=== PATIENT | female | born 1950 | race African-American/Black ===

== ENCOUNTER 2025-09-23 07:56 | Outpatient (AMB) | payer MEDICARE, SELFPAY ==
--- OUTSIDE RECORDS SUMMARY | 2025-09-23 07:59 | XMS_ITS | Clinical Summary ---
Author Organization [facility] Address [address] [place] [address] Care Team Providers Care Healthcare Architect Name Role Phone Mi Solorzano MD Primary Care Provider [phone]- [phone] Social History Tobacco Use Types Packs/Day Years Used Date Smoking Tobacco: Never Assessed Comments Unknown Sex and Gender Information Value Date Recorded Sex Assigned at Not on file Legal Sex Female 8:42 PM EST Gender Identity Not on file Sexual Orientation Not on file Plan of Treatment Health Maintenance Due Date Last Done Comments Diabetes: Annual GFR (Glomerular Filtration Rate) 1950 Diabetes: Annual Foot Exam 1959 Diabetes: Annual Retina Eye Exam 1959 Cholesterol Screening (Lipid Panel) 11/06/2022 Falls Risk Assessment 11/06/2022 Hepatitis C Screening 11/06/2022 Osteoporosis Screening (Bone Density Screening) 11/06/2022 Social Influencers of Health Screening 11/06/2022 Hypertension/CHF/CAD Annual BMP Blood Test 11/09/2022 RSV Immunization Adult Patients (1 - 1-dose 75+ series) 01/28/2024 Depression Screening 11/24/2024 COVID-19 Vaccine ( season) 2025 09/06/2024, 09/20/2023, 05/17/2022, Additional history exists Influenza Vaccine (#1) 2025 4, 09/20/2023, 09/18/2022, Additional history exists Diabetes: Annual Urine Albumin-Creatinine Ratio (uACR) 09/22/2025 Diabetes: Blood Sugar Control Test (HGBA1C) 09/22/2025 DTaP,Tdap,and Td Vaccines (4 - Td or Tdap) 01/01/2032 01/01/2022, 10/25/2011, 07/26/2005 Zoster Vaccines Completed 08/21/2020, 02/04/2020 Pneumococcal Vaccine: 50+ Years Completed 07/01/2022, 03/30/2018, 04/03/2016 Breast Cancer Screening Discontinued 01/30/20, 01/28/2023, 01/25/2022, Additional history exists HIB Vaccines Aged Out No longer eligi ble based on patient's age to complete this topic HPV Vaccines Aged Out No longer eligi ble based on patient's age to complete this topic Hepatitis A Vaccines Aged Out No long er eligible based on patient's age to complete this topic Hepatitis B Vaccines Aged Out No long er eligible based on patient's age to complete this topic IPV Vaccines Aged Out No longer eligi ble based on patient's age to complete this topic MMR Vaccines Aged Out No longer eligi ble based on patient's age to complete this topic Meningococcal ACWY Vaccine Aged Out N o longer eligible based on patient's age to complete this topic Meningococcal B Vaccine Aged Out No l onger eligible based on patient's age to complete this topic RSV Immunization Patients Under 20 months Aged Out No longer eligible based on patient's age to complete this topic Varicella Vaccines Aged Out No longer eligible based on patient's age to complete this topic Procedures Procedure Name Priority Date/Time Associated Diagnosis Comments [facility] SCREENING DIGITAL Routine 01/30/2024 3:45 PM EST Encounter for screening mammogram for malignant neoplasm of breast from Last 3 Months or Most Recently Relevant to Health Maintenance Results * [facility] SCREENING DIGITAL (01/30/2024 3:45 PM EST) Anatomical Region Laterality Modality Mammography 01/30/2024 1:04 PM EST Narrative 01/30/2024 3:45 PM [facility] Diagnostic Imaging Department [address] [place] [id number] Patient: AMANDO WALDEN Georgina /Age/Sex: 1950 - 74 - F Unit#: [id number] Location/Status: SPDIMAM/REG CLI Mnemonic/Ordering Site: [facility] Ordering Physician: MI SOLORZANO MD [facility] Screening Digital - 01/30/24 - 1319 Report Status:Signed EXAM: [facility] Screening Digital EXAM DATE AND TIME: 01/30/2024 1:19 PM HISTORY: Screening. Sister had breast carcinoma age 62. COMPARISON: 01/27/23, 01/25/22, 01/22/21, 12/27/19 TECHNIQUE: Bilateral digital breast tomosynthesis was performed in the CC and MLO projections. Computer aided detection with [employer] 3D 3.1 was employed. TISSUE DENSITY: a. The breasts are almost entirely fatty. FINDINGS: The nodular parenchymal pattern is unchanged. Multiple benign-appearing calcifications are again seen bilaterally. No suspicious masses, grouped microcalcifications, or areas of architectural distortion are seen. Vascular calcification is present. The skin is unremarkable. IMPRESSION: Stable mammographic appearance of the breasts. No evidence of malignancy is seen. A negative mammogram in the presence of a clinically suspicious palpable abnormality does not preclude the possibility of malignancy or alter the indications for biopsy. BI-RADS: Category 2: Benign RECOMMENDATION(S): 1: Routine screening mammogram BILATERAL in 1 year. Dictating Physician: NICOLE MORALES MD Electronically Signed by: NICOLE MORALES MD Dic Date/Time: 01/30/24 1544 Sign date/Time: 01/30/24 1545 Procedure Note Nicole Morales MD - 07/12/2024 [facility] Diagnostic Imaging Department [address] [place] [id number] Patient: AMANDO WALDEN Georgina /Age/Sex: 1950 - 74 - F Unit#: [id number] Location/Status: [facility] CLI Mnemonic/Ordering Site: [facility] Ordering Physician: MI SOLORZANO MD [facility] Screening Digital - 01/30/24 - 1319 Report Status:Signed EXAM: [facility] Screening Digital EXAM DATE AND TIME: 01/30/2024 1:19 PM HISTORY: Screening. Sister had breast carcinoma age 62. COMPARISON: 01/27/23, 01/25/22, 01/22/21, 12/27/19 TECHNIQUE: Bilateral digital breast tomosynthesis was performed in the CCand MLO projections. Computer aided detection with [employer] 3D 3.1was employed. TISSUE DENSITY: a. The breasts are almost entirely fatty. FINDINGS: The nodular parenchymal pattern is unchanged. Multiple benign-appearing calcifications are again seen bilaterally. No suspicious masses, grouped microcalcifications, or areas of architectural distortion are seen. Vascular calcification is present. The skin is unremarkable. IMPRESSION: Stable mammographic appearance of the breasts. No evidence of malignancyis seen. A negative mammogram in the presence of a clinically suspicious palpable abnormality does not preclude the possibility of malignancy or alter the indications for biopsy. BI-RADS: Category 2: Benign RECOMMENDATION(S): 1: Routine screening mammogram BILATERAL in 1 year. Dictating Physician: NICOLE MORALES MD Electronically Signed by: NICOLE MORALES MD Dic Date/Time: 01/30/24 1544 Sign date/Time: 01/30/24 1545 Mi Solorzano MD IMG BI PROCEDURES Final Re sult from Last 3 Months or Most Recently Relevant to Health Maintenance Care Teams Healthcare Architect Relationship Specialty Start Date End Date Mi Solorzano MD [address] [place] [id number] PCP - General Internal Medicine 01/06/19
--- OUTSIDE RECORDS SUMMARY | 2025-09-23 07:59 | XMS_ITS | Clinical Summary ---
Author Organization [facility] Address [address] [address] Phone Care Team Providers Care Hand Trucker Name Role Phone Yamileth Hill MD Primary Care Provider [phone]- [phone] Allergies Active Allergy Reactions Criticality Noted Date Comments Calcium Channel Blockers 07/25/2021 Dizziness Irbesartan 07/25/2021 Fatigue, near syncope Losartan 07/25/2021 Fatigue Medications aspirin (ST DANETTE) 81 MG EC tablet Take 81 mg by mouth 1 (one) time each day Active hydroCHLOROthiazi de 25 MG tablet Take 37.5 mg by mouth 1 (one) time each day Active metFORMIN (GLUCOPHAGE) 500 MG tablet Take 500 mg by mouth 2 (two) times a day with meals Active spironolactone (ALDACTONE) 50 MG tablet Take 50 mg by mouth 1 (one) time each day Active valsartan (DIOVAN) 80 MG tabletIndications :Essential (primary) hypertension,Type 2 diabetes mellitus without complication (HCC) Take 1 tablet (80 mg total) by mouth 1 (one) time each day 90 tablet 1 06/21/2025 Active Active Problems Problem Noted Date Diagnosed Date Chronic kidney disease, stage 2 (mild) Essential (primary) hypertension 07/31/2021 Type 2 diabetes mellitus without complication Resolved Problems Problem Noted Date Diagnosed Date Resolved Date Stage 3a chronic kidney disease 08/28/2021 05/20/2022 Family History Medical History Relation Comments Diabetes Brother Cancer Father Diabetes Mother Stroke Mother Cancer Sister Diabetes Sister Relation Status Comments Brother Father Other Esophageal cance r Mother Sister Other lymphoma, stomac h cancer Social History Tobacco Use Types Packs/Day Years Used Date Smoking Tobacco: Never Smokeless Tobacco: Never Alcohol Use Standard Drinks/Week Comments Never 0 (1 standard drink = 0.6 oz pur e alcohol) Comments Unknown Sex and Gender Information Value Date Recorded Sex Assigned at Female 10/21/2021 9:11 PM EST Legal Sex Female 3:15 PM EDT Gender Identity Female 10/21/2021 9:11 PM EST Sexual Orientation Not on file Last Filed Vital Signs Vital Sign Reading Time Taken Comments Blood Pressure 130/78 11/08/2024 1:20 PM EST Pulse 100 11/08/2024 1:20 PM EST Temperature - - Respiratory Rate - - Oxygen Saturation 98% 11/08/2024 1:20 PM EST Inhaled Oxygen Concentration - - Weight 113 kg (250 lb) 11/08/2024 1:20 PM EST Height 172.7 cm (5' 8 ) 07/31/2021 1:54 PM EDT Body Mass Index 38.01 07/31/2021 1:54 PM EDT Plan of Treatment Upcoming Encounters Date Type Department Care Team (Late st Contact Info) Description 11/08/2025 1:00 PM EST Office Visit [facility] [address] [address] Agustina Javier ARNP [address] [address] Health Maintenance Due Date Last Done Comments Diabetes: Hemoglobin A1C 07/31/2021 Diabetes: Ophthalmology Exam 07/31/2021 Diabetes: Pedal Pulse Checked 07/31/2021 Diabetes: Sensory Foot Exam 07/31/2021 Diabetes: Visual Foot Exam 07/31/2021 Influenza Vaccine (#1) 2025 4, 08/29/2020 Pneumococcal Vaccine: 50+ Years Completed 03/30/2018, 04/03/2016 Hepatitis B Vaccine Aged Out No longe r eligible based on patient's age to complete this topic Insurance Care Teams Hand Trucker Relationship Specialty Start Date End Date Yamileth Hill MD [address] [place] [address] PCP - General Internal Medicine 06/11/21
--- NOTE | 2025-09-23 08:01 | A.OFFPC_ITS ---
Vital Signs 09/23/25 08:04 Height 5 ft 6.75 in Weight 0 oz BMI 0.0 BP 120/76 Blood Pressure Location Rt brachial Position Sitting Respiration 16 Pulse 86 Pulse Source Pulse Oximeter Temp 97.9 F Temp Source Temporal Artery Scan Pulse Oximetry (%) 98 Intake Visit Reasons: reestablish care, DM, HTN follow up Sample Body Builder Required: No Accompanied by: Self / Same As Patient Allergies atorvastatin Adverse Reaction (Intermediate, Verified 09/23/25 08:35) muscle aches Calcium Channel Blocking Agents-Dih Adverse Reaction (Intermediate, Verified 09/23/25 08:37) achiness Medication List - Last Reconciled 09/23/25 by Yamileth Hill MD atorvastatin 10 mg PO DAILY cholecalciferol (vitamin D3) 1,250 mcg PO QWEEK hydrochlorothiazide 37.5 mg PO DAILY Srinivasan,saliva-B.bif-S.therm 175 mg 1 cap PO DAILY loratadine 10 mg PO DAILY PRN metformin 500 mg PO BID spironolactone 50 mg PO DAILY valsartan 80 mg PO DAILY Tobacco use date assessed: 09/23/25 Fall risk assessment: No Falls in past year Last assessed Fall Risk: 09/23/25 Dental Screening Dental Screen Date: 09/23/25 Did you have a dental visit in the last 12 months?: Yes Did you have a dental problem in the last 6 months where you did not have access to dental care?: No Was dental information given to patient?: Patient has dentist HPI HPI Comments History of Present Illness Details The patient is a 75-year-old female presenting for re-establishment of care . Allergic Rhinitis: Symptoms began following her nephew?s family's stay. Associated with nasal discharge, watery eyes, and possible environmental triggers from a dog. Suprapubic Fullness/Urinary Urgency: Presents with suprapubic fullness and urgency from July, and previously not addressed. States she feels discomfort mainly in suprapubic region. Hyperlipidemia/Statin Intolerance: Discontinued statin due to severe adverse effects like nausea and dizziness, achiness. Was taking atorvastatin. Reported unsteadiness prior to discontinuing statin. Essential Hypertension: Blood pressure well-managed with current medications. Type 2 Diabetes Mellitus: Controlled with metformin and no reported issues. CKD stage III-stable Vitamin D deficiency- on high dose vitamin D Diagnostic Results: - Bone Density: Evaluated in March 2025- n ormal - Colonoscopy- normal last done in 09/12 24 at [facility]. - Mammogram: to be scheduled, pt has goo d quality of life even though age 75 Care Team Nephrology- RTANE Review of Systems - Respiratory: Reports clear runny nose, primarily on the right. - Ophthalmologic: Reports watery eyes. - Gastrointestinal: Reports intermittent gastric fullness. - Genitourinary: Reports urinary urgency . - Overall: Denies new major systemic ill nesses. Physical Exam -HEENT: EOMI -Pulmonary- Lungs clear to auscultation. - Cardiac- Normal heart sounds, grade II / murmur across precordium - Abdomen- Soft, no tenderness or organo megaly upon palpation. - Extremities- No significant swelling, no tenderness -Msk: no CVA tenderness bilaterally - Neurological- No overt signs of dizzin ess or imbalance upon cursory exam. Assessment and Plan 1. Allergic Rhinitis - Recommend air purifiers and loratadine trial. 2. Suprapubic Fullness/Urinary Urgency - Perform urinalysis and culture. 3. Statin Intolerance - Discontinue statin and evaluate lipid control in labs. 4. Essential Hypertension - Maintain current treatment; monitor cl osely. 5. Type 2 Diabetes Mellitus - Continue metformin; evaluate with labs . 6. CKD stage III-stable Follow up in 6 months for physical Discussion Notes I discussed the likely allergic nature of the patient's rhinitis symptoms, suggesting improvements through environmental changes such as air purifiers and trial of loratadine. We addressed her previous statin intolerance, deciding to discontinue due to intolerable side effects, and planned to reassess her cholesterol control with upcoming labs. We prioritized urinalysis to address her ongoing urinary concerns. Patient Instructions - Use air purifiers in living and sleepi ng areas. - Take loratadine (Claritin) once daily with evening meal for two weeks. - Visit the lab for urine testing today. . - Keep taking your blood pressure and di abetes medications as prescribed. - Call the office if symptoms do not imp rove or worsen. 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 How often do you have a drink containing alcohol?: Never 3. How often do you have six or more drinks on one occasion?: Never Total Score: 0 Physical exam (Primary Care) Vital Signs: Last Vital Signs Temp 97.9 F 09/23/25 08:04 Pulse 86 09/23/25 08:04 Resp 16 09/23/25 08:04 BP 120/76 09/23/25 08:04 Pulse Ox 98 09/23/25 08:04 BMI result Body Mass Index 0.0 Tobacco/Smoking Status: Tobacco use Status Tobacco use date assessed 09/23/25 09/23/25 08:08 Patient Tobacco Use Status Never used Tobacco 09/23/25 08:08 e-Cigarette/Vaping Use Never Used 09/23/25 08:08 Coding Level of Care Code Est Pt Level 4 (85111) Complex EM visit Add On G2211 Diagnoses Diabetes mellitus type 2 in obese E11.69; E66.9 Primary hypertension I10 Hyperlipidemia, unspecified hyperlipidemia type E78.5 Hyperlipidemia type: unspecified Urinary symptom or sign R39.9 Assessment & Plan Assessment & Plan (1) Diabetes mellitus type 2 in obese: Code(s): E11.69 - Type 2 diabetes mellitus with other specified complication; E66.9 - Obesity, unspecified Category: Medical (2) Primary hypertension: Code(s): I10 - Essential (primary) hypertension Category: Medical (3) Hyperlipidemia: Code(s): E78.5 - Hyperlipidemia, unspecified Category: Medical Qualifiers: Hyperlipidemia type: unspecified Qualified Code(s): E78.5 - Hyperlipidemia, unspecified (4) Urinary symptom or sign: Code(s): R39.9 - Unspecified symptoms and signs involving the genitourinary system Category: Medical Plan: check urinalysis, continue to monitor if needed do renal/pelvic ultrasound Plan - Trial loratadine with environmental adjustments. - Conduct urinalysis for urinary concerns. - Stop statin; reassess lipid panel. - Monitor BP under current meds. - Continue diabetes therapy and check HbA1c. Orders: Orders Comprehensive Met. Panel Today E11.69 - Type 2 diabetes mellitus with other specified complication, E66.9 - Obesity, unspecified, E78.5 - Hyperlipidemia, unspecified, I10 - Essential (primary) hypertension, R10.2 - Pelvic and perineal pain, R39.9 - Unspecified symptoms and signs involving the genitourinary system Complete Blood Count Auto Diff Today - Type 2 diabetes mellitus with other specified complication, E66.9 - Obesity, unspecified, E78.5 - Hyperlipidemia, unspecified, I10 - Essential (primary) hypertension, R10.2 - Pelvic and perineal pain, R39.9 - Unspecified symptoms and signs involving the genitourinary system Lipid Panel Today - Type 2 diabetes mellitus with other specified complication, E66.9 - Obesity, unspecified, E78.5 - Hyperlipidemia, unspecified, I10 - Essential (primary) hypertension, R10.2 - Pelvic and perineal pain, R39.9 - Unspecified symptoms and signs involving the genitourinary system Hemoglobin A1c Today - Type 2 diabetes mellitus with other specified complication, E66.9 - Obesity, unspecified, E78.5 - Hyperlipidemia, unspecified, I10 - Essential (primary) hypertension, R10.2 - Pelvic and perineal pain, R39.9 - Unspecified symptoms and signs involving the genitourinary system Microalbumin, Random (w Creat) Today - Type 2 diabetes mellitus with other specified complication, E66.9 - Obesity, unspecified, E78.5 - Hyperlipidemia, unspecified, I10 - Essential (primary) hypertension, R10.2 - Pelvic and perineal pain, R39.9 - Unspecified symptoms and signs involving the genitourinary system Urine Culture Today - Type 2 diabetes mellitus with other specified complication, E66.9 - Obesity, unspecified, E78.5 - Hyperlipidemia, unspecified, I10 - Essential (primary) hypertension, R10.2 - Pelvic and perineal pain, R39.9 - Unspecified symptoms and signs involving the genitourinary system UA w Microscopic Today - Type 2 diabetes mellitus with other specified complication, E66.9 - Obesity, unspecified, E78.5 - Hyperlipidemia, unspecified, I10 - Essential (primary) hypertension, R10.2 - Pelvic and perineal pain, R39.9 - Unspecified symptoms and signs involving the genitourinary system Vitamin D 25-OH Total Today E55.9 - Vitamin D deficiency, unspecified Medications: New zinc gluconate 50 mg PO DAILY 30 tabs 0RF loratadine 10 mg PO DAILY PRN 30 tabs 3RF allergy symptoms
[2025-09-23 08:04] VITALS: BP 120/76; PULSE 86; RESP 16; TEMP 36.6; O2SAT 98
== END 2025-09-23 09:00 | disposition home or self-care (01) ==
LOC: HO.HMCHD 07:57
PROVIDERS: PCP Internal Medicine; Visit Provider Internal Medicine
DX: E11.69 Type 2 diabetes mellitus with other specified complication (principal); E66.9 Obesity, unspecified; I10 Essential (primary) hypertension; E78.5 Hyperlipidemia, unspecified; R39.9 Unspecified symptoms and signs involving the genitourinary system

== ENCOUNTER 2025-09-23 07:56 | Outpatient (REF) | payer MEDICARE, SELFPAY ==
[2025-09-23 09:33] LABS: MANUAL DIFF FLAG NO
[2025-09-23 10:03] LABS: Hematocrit 34.4 % (37.0-47.0); Hemoglobin 11.2 g/dl (12.0-16.0); Imm Gran Abs Auto 0.01 X10*3/uL (0.00-0.03); Imm Gran Pct Auto 0.2 % (0.0-0.4); Lymphocytes Absolute Auto 1.8 X10*3/uL (1.2-4.9); Mean Corpuscular HGB Conc 32.6 g/dl (31.0-35.0); Mean Corpuscular Hemoglobin 29.4 pg (27.0-33.0); Mean Corpuscular Volume 90.3 fL (80.0-98.0); NRBC Abs Auto 0.000 X10*3/uL (0.0-0.012); NRBC Pct Auto 0.0 /100WBC (0.0-0.2); Platelet Count 248 X10*3/uL (160-400); Red Blood Count 3.81 X10*6/uL (4.20-5.50); White Blood Count 4.4 X10*3/uL (4.8-10.8)
[2025-09-23 10:22] LABS: Appearance Urine Cloudy; Glucose Urine UA Negative (Negative); PH 5.5 (5.0-9.0); Specific Gravity - Urine 1.010 (1.005-1.025); UMIC TRIGGER UA YES
[2025-09-23 11:10] LABS: Alanine Aminotransferase 13 U/L (0-31); Albumin Level 4.2 g/dL (3.5-5.0); Alkaline Phosphatase 60 U/L (39-117); Anion Gap 12 (12-20); Aspartate Amino Transferase 19 U/L (5-31); Blood Urea Nitrogen 28 mg/dL (9-16); Calcium 10.1 mg/dL (8.4-10.2); Carbon Dioxide 27 mmol/L (22-29); Chloride 106 mmol/L (96-108); Cholesterol 195 mg/dL (<200); Estimated Glomerular Filt Rate 38; HDL Cholesterol 56 mg/dL (>40); Potassium 4.7 mmol/L (3.3-5.1); Sodium 140 mmol/L (135-145); Total Protein 7.4 g/dL (6.5-8.0); Triglycerides 68 mg/dL (<150)
[2025-09-23 11:38] LABS: Microalbum/Creatinine Ratio Ur 109.9 ug/mg cr (<30)
== END 2025-09-23 07:57 | disposition home or self-care (01) ==
LOC: HO.LAB 07:56
PROVIDERS: PCP Internal Medicine; Visit Provider Internal Medicine
DX: E11.22 Type 2 diabetes mellitus with diabetic chronic kidney disease (principal); I12.9 Hypertensive chronic kidney disease with stage 1 through stage 4 chronic kidney disease, or unspecified chronic kidney disease; E11.69 Type 2 diabetes mellitus with other specified complication; E66.9 Obesity, unspecified; E78.5 Hyperlipidemia, unspecified; E55.9 Vitamin D deficiency, unspecified; E11.9 Type 2 diabetes mellitus without complications; J30.9 Allergic rhinitis, unspecified; R39.15 Urgency of urination; N18.30 Chronic kidney disease, stage 3 unspecified; R10.20 Pelvic and perineal pain unspecified side
CPT/HCPCS: 36415; 80053; 80061; 81001; 82043; 82306; 82570; 83036; 85025; 87086; 87088; 87186; 99212